=== PATIENT | female | born 1940 | race Caucasian/White ===

== ENCOUNTER 2016-04-12 08:00 | Observation (INO) | payer MEDICARE ==
--- NOTE | 2016-04-11 09:46 | NUR ---
NN PT REPORTS SHE CALLED DR. DONNELLY'S OFFICE AND CANCELLED HER APPT. FOR TOMORROW. SHE STATES IT IS RESCHEDULED FOR April.
[~2016-04-12] VITALS: Ht 157.5 cm; Wt 91.3 kg
[~2016-04-12 08:00] MED LIST: ACET-1651 PO; ATOR10TA33 PO; CALC-52 PO; CITA20TA9 PO; CYCL30DR BOTH EYES; ESOM20CA PO; LEVO88TA4 PO; LISI1TAB9 PO; MAGN400T6 PO; MESA400C2 PO; METO100T5 PO; MULT-806 PO; WARF3TAB6 PO
--- OUTSIDE RECORDS SUMMARY | 2016-04-20 07:50 | XMS REPORT | Continuity of Care Document ---
Author Author [facility] Organization [facility] Address Unknown Phone Unavailable Support Name Relationship Address Phone LAKIA LEE MD Caregiver [address] [place] [address] Unavailable ETHAN GALDAMEZ DO Caregiver [address] [place] [address] Unavailable AISLINN JOHNSON Next Of Kin [address] [place], [place] [id number] Insurance Providers Guarantor Sri Johnson Address [address] [place], [place] [id number] Email [email or web address] Payer Medicare Policy Number [id number] Subscriber's Name Sri Johnson Relationship 18 Self Payer [facility] Policy Number [id number] Subscriber's Name AlexSri A Relationship 18 Self Group Number [id number] Advance Directives Directive Response Recorded Date/Time Advanced Directives Type None 03/27/16 2:50pm Chief Complaint and Reason for Visit Chief Complaint Cough,Fever,Flu,URI Reason for Visit Bronchitis Problems Past Problems Medical Problem Onset Date Bronchitis Unknown Medications Current Home Medications Medication Dose Units Route Directions Days Qty Instructions Start Date Acetaminophen (Tylenol Extra Strength) 500 Mg Tablet 1,000 Mg Oral Every 8 Hours as needed for Pain 04/15/13 Atorvastatin Calcium 10 Mg Tablet 10 Mg Oral Bedtime 07/30/12 Benzonatate 100 Mg Capsule 1 Cap Oral Four Times Daily as needed for Cough 15 Capsule DO NOT BITE, CHEW, OR CRUSH 03/27/16 Calcium Carbonate (Calcium) 500 Mg Tablet 500 Mg Oral Twice A Day 03/27/16 Citalopram Hydrobromide (Citalopram Hbr) 20 Mg Tablet 20 Mg Oral Bedtime 01/14/14 Cyclosporine (Restasis) 1 Each Droperette 1 Drop Both Eyes Twice A Day 03/27/16 Doxycycline Monohydrate 100 Mg Capsule 1 Cap Oral Twice A Day 7 Days 14 Capsule 03/27/16 Esomeprazole Mag Trihydrate (Nexium) 20 Mg Capsule 20 Mg Oral Daily 03/27/16 Levothyroxine Sodium (Synthroid) 88 Mcg Tablet 88 Mcg Oral Daily 03/27/16 Lisinopril/Hydrochlorothiazide (Lisinopril-Hctz 10-12.5 Mg Tab) 1 Each Tablet 1 Tab Oral Daily 03/27/16 Magnesium Oxide 400 Mg Tablet 400 Mg Oral Twice A Day 03/27/16 Mesalamine (Delzicol) 400 Mg Cap.drtab. 800 Mg Oral Twice A Day 03/27/16 Metoprolol Tartrate 100 Mg Tablet 100 Mg Oral Bedtime 03/27/16 Multivitamins (Multivitamin) 1 Tab Tablet 1 Tab Oral Daily Warfarin Sodium 3 Mg Tablet 3 Mg Oral Sumotuwefrsa@1200 03/27/16 Warfarin Sodium 3 Mg Tablet 1.5 Mg Oral Every At 12:00PM 03/27/16 Past Home Medications Medication Directions Ordered Status Acetaminophen With Codeine (Tylenol W-Codeine #3 Tablet) 1 Tab Tablet, 1 Tab Oral As Needed 06/07/08 Discontinued Amlodipine Besylate (Norvasc) 5 Mg Tablet, 5 Mg Oral Daily 09/12/09 Discontinued Brimonidine Tartrate (Alphagan P) 10 Ml Drops, 10 Ml Ophthalmic Daily Discontinued Calcium Carbonate/Vitamin D3 (Calcium + D Tablet) 1 Udtab Tablet, 1 Udtab Oral Twice A Day 09/02/09 Discontinued Clonidine Hcl 0.2 Mg Tablet, 0.1 Mg Oral Twice A Day 10/10/10 Discontinued Escitalopram Oxalate (Lexapro) 10 Mg Tablet, 10 Mg Oral Daily 05/30/08 Discontinued Hydralazine Hcl 10 Mg Tablet, 10 Mg Oral As Needed 09/12/09 Discontinued Ibuprofen (Motrin) 800 Mg Tablet, 800 Mg Oral As Needed 06/07/08 Discontinued Levothyroxine Sodium (Synthroid) 88 Mcg Tablet, 88 Mcg Oral Daily 09/09/09 Discontinued Lisinopril 30 Mg Tablet, Daily 08/31/09 Discontinued Lisinopril 20 Mg Tablet, 20 Mg Oral Daily 05/30/08 Discontinued Lorazepam (Ativan) 0.5 Mg Tablet, 0.5 Mg Oral Bedtime 10/10/10 Discontinued Metoprolol Succinate (Toprol Xl) 50 Mg Tab.sr.24h, Daily 09/12/09 Discontinued Metoprolol Succinate (Toprol Xl) 100 Mg Tab.sr.24h, 100 Mg Oral Daily Discontinued Mobic , 09/12/09 Discontinued Prednisolone 5 Mg/5 Ml Solution, 5 Mg Oral Twice A Day 03/27/12 Discontinued Psyllium Husk (Metamucil) 0.52 G Capsule, 0.52 G Oral Twice A Day 09/12/09 Discontinued Social History Social History Problem Response Recorded Date/Time Onset Date Status Chewing Tobacco Status No 07/30/2012 1:23am Not Applicable Not Applicable Hx Substance Use No 03/27/2016 3:40pm Not Applicable Not Applicable Hx Alcohol Use Y WINE OCCASIONALLY 03/27/2016 3:40pm Not Applicable Not Applicable Has the pt used tobacco in the last 12 months No 01/14/2014 4:08pm Not Applicable Not Applicable Query Response Start Date Stop Date Smoking Status Never smoker Hospital Discharge Instructions No hospital discharge instructions. Plan of Care Discharge Date 03/27/16 6:18pm Disposition 01 DISCHARGED HOME, SELF-CARE Condition at Discharge Stable Instructions/Education Provided Acute Bronchitis (ED) Prescriptions See Medication Section Referrals ETHAN GALDAMEZ DO Address: [address] [place] [address] [place] [phone] Additional Instructions/Education 1. Take antibiotics as prescribed until course complete 2. Take cough medication as needed for coughing. 3. Follow up with your primary doctor in 2-3 days if you are not getting better. Care Plan and Goals Physician Care Plan Problem: Bronchitis Goal: Follow up with primary care provider Instructions: Take medications and follow care plan as discussed/written Functional Status No functional status results. Allergies, Adverse Reactions, Alerts Allergen Type Severity Reaction Status Last Updated Morphine Adverse Reaction Unknown N/V Active 03/27/16 Immunizations Query Response on File Recorded Date/Time Hx Influenza Vaccination Y OCT 2013 01/14/14 4:08pm Hx Pneumococcal Vaccination Y 10/1801/14/14 4:08pm Hx Influenza Vaccination Y OCT 2013 01/14/14 4:08pm Influenza Vaccine Hx 201503/27/16 3:40pm Vital Signs Acute Vital Signs Vital Response Date/Time Temperature (Fahrenheit) 98.2 deg F (96.8 - 99.1) 03/27/2016 6:18pm Temperature (Calculated Celsius) 36.16466 degrees C (36.0 - 37.3) 03/27/2016 6:18pm Pulse Rate (adult) 59 bpm (60 - 100) 03/27/2016 6:18pm Respiratory Rate 18 breaths/min (10 - 20) 03/27/2016 6:18pm O2 Sat by Pulse Oximetry 98 % (90 - 100) 03/27/2016 6:18pm Blood Pressure 123/68 mm Hg 03/27/2016 6:18pm Height (Feet) 5 feet 03/27/2016 2:50pm Height (Inches) 2.00 inches 03/27/2016 2:50pm Weight (Kilograms) 95.000 kg 03/27/2016 2:50pm Body Mass Index (BMI) 38.0 03/27/2016 2:50pm Results No known relevant diagnostic tests, laboratory data and/or discharge summary. Procedures Procedure Status Date Provider(s) Breast tomosynthesis bi Completed 02/25/16 [id number]"SCREENING MAMMOGRAPHY, PRODUCING DIRECT DIGITAL IMAGE Completed Encounters Encounter Location Arrival/Admit Date Discharge/Depart Date Attending Provider Departed Emergency Room [facility] 03/27/16 2:47pm 03/27/16 6: 18pm LAKIA LEE MD Registered Clinic [facility] 02/25/16 3:44pm TYLOR VASQUEZ Diagnosis
--- OUTSIDE RECORDS SUMMARY | 2016-04-20 07:50 | XMS REPORT | Continuity of Care Document ---
Author Author [facility] Organization [facility] Address Unknown Phone Unavailable Support Name Relationship Address Phone ETHAN GALDAMEZ DO Caregiver [facility] [address] [place] [phone] AISLINN JOHNSON Next Of Kin [address] [place], [place] [phone] Insurance Providers Payer Name Policy Number Subscriber Name Relationship [facility] [id number] Sir Johnson 18 Self Advance Directives Directive Response Recorded Date/Time Ordered Resuscitation Status Full Code, unverified 01/14/14 4:33pm Resuscitation Documents on File Yes 01/14/14 4:13pm Problems No known problems or medical conditions. Medications Medication Dose Route Sig Days/Qty Instructions Order Date Discontinued Date Status Estradiol/Levonorgestrel 1 Patch.wk TD WEEKLY 09/11/09 Active Esomeprazole Mag Trihydrate 40 Mg PO DAILY 09/12/09 Active Levothyroxine Sodium 88 Mcg PO DAILY 09/09/09 09/11/09 Discontinued Lisinopril 20 Mg PO DAILY 05/30/08 08/31/09 Discontinued Metoprolol Succinate 100 Mg PO DAILY 05/30/08 08/31/09 Discontinued Escitalopram Oxalate 10 Mg PO DAILY 05/30/08 08/31/09 Discontinued Brimonidine Tartrate 10 Ml OP DAILY 05/30/08 08/31/09 Discontinued Calcium Carbonate/Vitamin D3 1 Udtab PO TWICE A DAY 09/02/09 Discontinued Psyllium Husk 0.52 G PO TWICE A DAY 09/12/09 10/10/10 Discontinued Ibuprofen 800 Mg PO NEEDED 06/07/08 08/31/09 Discontinued Acetaminophen With Codeine 1 Tab PO NEEDED 06/07/08 08/31/09 Discontinued Metoprolol Succinate DAILY 09/12/09 10/10/10 Discontinued Lisinopril DAILY 08/31/09 09/02/09 Discontinued Amlodipine Besylate 5 Mg PO DAILY 09/12/09 12/05/11 Discontinued Hydralazine Hcl 10 Mg PO NEEDED 09/12/09 12/05/11 Discontinued Levothyroxine Sodium 100 Mcg PO DAILY 09/12/09 Active [Mobic] 09/12/09 10/10/10 Discontinued Metoprolol Succinate 100 Mg PO BEDTIME 10/10/10 Active Lorazepam 0.5 Mg PO BEDTIME 10/10/10 12/05/11 Discontinued Warfarin Sodium 3 Mg PO DAILY TAKES 2.5 MG DAILY EXCEPT FOR MON/- TAKES 5 MG 10/10/10 Active Clonidine Hcl 0.1 Mg PO TWICE A DAY 10/10/10 02/29/12 Discontinued Multivitamins 1 Tab PO DAILY 12/05/11 Active Lisinopril/Hydrochlorothiazide 0.5 Tab PO DAILY 03/01/12 Active Cyclosporine 1 Drop BOTH EYES TWICE A DAY 03/27/12 Active Prednisolone 5 Mg PO TWICE A DAY 03/27/12 07/30/12 Discontinued Atorvastatin Calcium 10 Mg PO BEDTIME 07/30/12 Active Calcium Carbonate/Vitamin D3 1 Udtab PO TWICE A DAY 04/12/13 Active Acetaminophen 1,000 Mg PO NEEDED 04/15/13 Active P-Ephed Hcl/Fexofenadine Hcl 1 Tab.sr PO NEEDED 04/15/13 Active Citalopram Hydrobromide 20 Mg PO BEDTIME 30 Days 01/14/14 Active Social History Social History Problem Response Recorded Date/Time Chewing Tobacco Status No 07/30/2012 1:23am Hx Substance Use No 01/14/2014 4:08pm Hx Alcohol Use Y WINE OCCASIONALLY 01/14/2014 4:08pm Has the pt used tobacco in the last 12 months No 01/14/2014 4:08pm Query Response Start Date Stop Date Smoking Status Former smoker Hospital Discharge Instructions No hospital discharge instructions. Plan of Care No plan of care. Functional Status No functional status results. Allergies, Adverse Reactions, Alerts Allergen Type Severity Reaction Status Last Updated Morphine Allergy Unknown N/V Active 07/30/12 Immunizations Name Given Type Hx Influenza Vaccination Y OCT 2013 Historical Hx Pneumococcal Vaccination Y 10/18 Historical Hx Influenza Vaccination Y OCT 2013 Historical Vital Signs Acute Vital Signs Vital Response Date/Time Temperature (Fahrenheit) 96.8 deg F (96.8 - 99.1) Temperature (Calculated Celsius) 36.50227 degrees C (36.0 - 37.3) Temperature Source Temporal Pulse Rate (adult) 52 bpm (60 - 100) Respiratory Rate 14 breaths/min (10 - 20) O2 Sat by Pulse Oximetry 99 % (90 - 100) Oxygen Delivery Method Room Air Blood Pressure 116/67 mm Hg Blood Pressure Source Automatic Cuff Height 5 ft 2 in Weight 186 lb Body Mass Index 34.0 kg/m^2 Results Test Source Date Result Interp. Ref. Range Comments Activated Partial Thromboplast Time April 04, 2013 5:12pm 54.7 SEC H 24-36 Alanine Aminotransferase (ALT/SGPT) August 31, 2012 1:43pm 26 U/L N 9-52 Albumin August 31, 2012 1:43pm 4.1 G/DL N 3.5-5.0 Albumin/Globulin Ratio August 31, 2012 1:43pm 1.3 RATIO N 1.1-2.2 Alkaline Phosphatase August 31, 2012 1:43pm 65 U/L N 38-126 Amylase Level July 30, 2012 12:09pm 91 U/L N 30-110 Anion Gap April 17, 2013 4:28am 7 MEQ/L N 5-15 Aspartate Amino Transf (AST/SGOT) August 31, 2012 1:43pm 27 U/L N 14-36 B-Type Natriuretic Peptide August 31, 2009 1:00am 18 PG/ML N 15-100 BUN/Creatinine Ratio April 17, 2013 4:28am 16 RATIO N 6-26 Band Neutrophils # August 02, 2012 5:18am 0.2 T/MM3 - Band Neutrophils % August 02, 2012 5:18am 8.0 % H 0-6 Basophils # (Auto) April 15, 2013 6:30am 0.1 T/MM3 N 0-0.2 COMMENT SCU WILL CALL Basophils (%) (Auto) April 15, 2013 6:30am 1.0 % N 0-2 COMMENT SCU WILL CALL Blood Smear Pathologist Review July 30, 2012 12:09pm Sent for review - COMMENT All cell lines dropping from Mar 2012 Blood Urea Nitrogen April 17, 2013 4:28am 22.0 MG/DL H 7-17 Calcium Level April 17, 2013 4:28am 8.5 MG/DL N 8.4-10.2 Calculated Osmolality April 17, 2013 4:28am 264 MOSM/KG N 261-280 Carbon Dioxide Level April 17, 2013 4:28am 27 MEQ/L N 22-30 Chloride Level April 17, 2013 4:28am 102 MEQ/L N 98-107 Cholesterol Level April 14, 2012 9:46am 225 MG/DL H 132-199 Cholesterol/HDL Ratio April 14, 2012 9:46am 6.1 RATIO H 0-4.0 Conjugated Bilirubin March 09, 2011 10:21pm 0.00 MG/DL N 0.00-0.30 Creatine Kinase MB December 05, 2011 5:07pm 3.1 NG/ML N 0-3.4 CALL TO [phone] Creatinine April 17, 2013 4:28am 1.4 MG/DL DH 0.7-1.2 D-Dimer March 09, 2011 10:21pm < 150 NG/ML 0-230 <224 NG/ML= PRESUMPTIVE NEGATIVE FOR PE OR DVT>224 NG/ML=ADDITIONAL EVALUATION FOR PE OR DVT RECOMMENDED Eosinophils # (Auto) April 15, 2013 6:30am 0.3 T/MM3 N 0-0.5 COMMENT SCU WILL CALL Eosinophils # (Manual) August 02, 2012 5:18am 0.1 T/MM3 N 0-0.5 Eosinophils % (Manual) August 02, 2012 5:18am 4.0 % N 0-4 Eosinophils (%) (Auto) April 15, 2013 6:30am 3.9 % N 0-4 COMMENT SCU WILL CALL Erythrocyte Sedimentation Rate April 04, 2013 5:00pm 42 MM/HR H 0-20 Folate August 01, 2012 4:20am > 20.0 NG/ML H 2.76-20 NORMAL ADULT RANGE: 2.76->20 ng/mL Free Thyroxine September 10, 2009 5:05am 1.15 NG/DL N 0.78-2.19 Globulin August 31, 2012 1:43pm 3.2 G/DL N 2.4-3.6 Glucose Level April 17, 2013 4:28am 84 MG/DL N 65-110 Hematocrit April 17, 2013 4:28am 30.0 % L 36-46 Hemoglobin April 17, 2013 4:28am 9.6 GM/DL L 12-16 LDL Cholesterol, Calculated April 14, 2012 9:46am 188 H 66-159 Lactate Dehydrogenase August 31, 2012 1:43pm 451 U/L N 313-618 Lipase July 30, 2012 12:09pm 310 U/L H 23-300 Lymphocytes # (Auto) April 15, 2013 6:30am 2.4 T/MM3 N 1-4.8 COMMENT SCU WILL CALL Lymphocytes # (Manual) August 08, 2012 9:15am 2.7 T/MM3 N 1-4.8 Lymphocytes % (Manual) August 08, 2012 9:15am 36.0 % N 23-45 Lymphocytes (%) (Auto) April 15, 2013 6:30am 36.0 % N 23-45 COMMENT SCU WILL CALL Magnesium Level September 10, 2009 5:05am 1.9 MG/DL N 1.6-2.3 Mean Corpuscular Hemoglobin April 17, 2013 4:28am 29.7 UUG N 26-34 Mean Corpuscular Hemoglobin Concent April 17, 2013 4:28am 32.0 GM/DL N 31-37 Mean Corpuscular Volume April 17, 2013 4:28am 92.9 UM3 N 80-100 Mean Platelet Volume April 17, 2013 4:28am 10.8 UM3 N 9.4-12.4 Metamyelocytes # August 08, 2012 9:15am 0.2 T/MM3 - Metamyelocytes % August 08, 2012 9:15am 3.0 % H 0-0 Methylmalonic Acid August 01, 2012 4:20am 0.17 nmol/mL - Test Performed by:[place] [address] Chemical Plant Manager: aPncho Lanier III, M.D. Methylmalonic Acid, Serum performed at [facility], [address] [place] [address] Mixing Machine Tender Cork Rod Yolande Flanagan MD Monocytes # (Auto) April 15, 2013 6:30am 0.5 T/MM3 N 0-0.8 COMMENT SCU WILL CALL Monocytes # (Manual) August 08, 2012 9:15am 0.3 T/MM3 N 0-0.8 Monocytes % (Manual) August 08, 2012 9:15am 4.0 % N 0-9.0 Monocytes (%) (Auto) April 15, 2013 6:30am 8.1 % N 0-9.0 COMMENT SCU WILL CALL Neutrophils # (Auto) April 15, 2013 6:30am 3.4 T/MM3 N 1.8-7.7 COMMENT SCU WILL CALL Neutrophils # (Manual) August 08, 2012 9:15am 3.9 T/MM3 N 1.8-7.7 Neutrophils % (Manual) August 08, 2012 9:15am 53.0 % N 33-66 Neutrophils (%) (Auto) April 15, 2013 6:30am 50.7 % N 33-66 COMMENT SCU WILL CALL Platelet Count April 17, 2013 4:28am 283 T/MM3 N 130-400 Potassium Level April 17, 2013 4:28am 4.2 MEQ/L N 3.6-5 Prothromb Time International Ratio April 17, 2013 4:28am 1.40 H 0.86- 1.10 THERAPUTIC RANGE=2.00-3.00 FOR ANTI-THROMBOSIS THERAPUTIC RANGE=2.50- 3.50 FOR IMPLANTED VALVE RDW Standard Deviation April 17, 2013 4:28am 43.4 FL N 36.9-50.2 Red Blood Count April 17, 2013 4:28am 3.23 M/MM3 L 4.00-5.20 Sodium Level April 17, 2013 4:28am 136 MEQ/L N 134-144 Stool Occult Blood August 01, 2012 9:06pm Negative - Has specimen been collected/obtained? Y Stool for White Cells August 01, 2012 9:06pm Positive - Has specimen been collected/obtained? Y Thyroid Stimulating Hormone (TSH) January 09, 2013 2:50pm 0.47 MIU/L DN 0.47-4.68 Total Bilirubin August 31, 2012 1:43pm 0.70 MG/DL N 0.20-1.30 Total Creatine Kinase December 05, 2011 5:07pm 134 U/L N 30-135 CALL TO [phone] Total Protein August 31, 2012 1:43pm 7.3 G/DL N 6.3-8.2 Triglycerides Level April 14, 2012 9:46am 153 MG/DL H 35-135 Troponin I December 05, 2011 5:07pm < 0.012 ng/ml 0-0.12 CALL TO Unconjugated Bilirubin March 09, 2011 10:21pm 0.90 MG/DL N 0.00-1.10 Urine 5-HIAA 24 Hour September 10, 2009 8:33pm Ref lab rpt scanned - -- - 09/16/09 1057 ---5HIAA previously reported as: SENT OUT Urine Bilirubin April 15, 2013 6:15am Negative - COMMENT C&S IF WBC > 10 AND BACTERIA 1+ OR MOREHas specimen been collected/obtained? Y Urine Blood April 15, 2013 6:15am Negative - COMMENT C&S IF WBC > 10 AND BACTERIA 1+ OR MOREHas specimen been collected/obtained? Y Urine Collection Type April 15, 2013 6:15am Cleancatch-midstream - COMMENT C&S IF WBC > 10 AND BACTERIA 1+ OR MOREHas specimen been collected/ obtained? Y Urine Color April 15, 2013 6:15am Yellow - COMMENT C&S IF WBC > 10 AND BACTERIA 1+ OR MOREHas specimen been collected/obtained? Y Urine Fractionated Catecholamines September 10, 2009 8:33pm Ref lab rpt scanned - --- 09/17/09 1643 ---CATFU previously reported as: SENT OUT Urine Glucose (UA) April 15, 2013 6:15am Negative - COMMENT C&S IF WBC > 10 AND BACTERIA 1+ OR MOREHas specimen been collected/obtained? Y Urine Ketones April 15, 2013 6:15am Negative - COMMENT C&S IF WBC > 10 AND BACTERIA 1+ OR MOREHas specimen been collected/obtained? Y Urine Leukocyte Esterase April 15, 2013 6:15am Negative - COMMENT C& S IF WBC > 10 AND BACTERIA 1+ OR MOREHas specimen been collected/obtained? Y Urine Nitrite April 15, 2013 6:15am Negative - COMMENT C&S IF WBC > 10 AND BACTERIA 1+ OR MOREHas specimen been collected/obtained? Y Urine Protein April 15, 2013 6:15am Negative - COMMENT C&S IF WBC > 10 AND BACTERIA 1+ OR MOREHas specimen been collected/obtained? Y Urine Specific [place] April 15, 2013 6:15am 1.015 - COMMENT C&S IF WBC > 10 AND BACTERIA 1+ OR MOREHas specimen been collected/obtained? Y Urine Turbidity April 15, 2013 6:15am Clear - COMMENT C&S IF WBC > 10 AND BACTERIA 1+ OR MOREHas specimen been collected/obtained? Y Urine Urobilinogen April 15, 2013 6:15am 0.2 EU/DL - COMMENT C&S IF WBC > 10 AND BACTERIA 1+ OR MOREHas specimen been collected/obtained? Y Urine pH April 15, 2013 6:15am 6.0 - COMMENT C&S IF WBC > 10 AND BACTERIA 1+ OR MOREHas specimen been collected/obtained? Y VLDL Cholesterol April 14, 2012 9:46am 30.6 MG/DL H 0-28 Vitamin B12 Level August 01, 2012 4:20am 850 PG/ML N 239-931 White Blood Count April 17, 2013 4:28am 7.3 T/MM3 N 4.5-11.0 Chemistry Specimen Hemolysis April 17, 2013 4:28am < 15 0-25 0-25: No Hemolysis.26-70: Slight Hemolysis - can falsely elevate K and Urine Protein. 71-285: Moderate Hemolysis - can falsely elevate K, Troponin I, CA 19-9, PTH, CSF GLucose, and Urine Protein, and can falsely decrease Phenytoin. 286-999: Gross Hemolysis - can falsely elevate K, Troponin I, CA 19-9, PTH, CSF Glucose, and Urine Protine, and can falsely decrease Phenytoin. Recommend specimen recollection. Urinalysis Comment April 15, 2013 6:15am Microscopic not ind. - COMMENT C&S IF WBC > 10 AND BACTERIA 1+ OR MOREHas specimen been collected/ obtained? Y Lab Scanned Report April 04, 2013 9:34pm LAB TEST FORM REQUEST [id number] - Metanephrines & Normetanephrines September 10, 2009 8:33pm Ref lab rpt scanned - --- 09/15/09 1613 ---METANU previously reported as: SEND OUT HDL Cholesterol Direct April 14, 2012 9:46am 37 MG/DL L 40-60 Methicillin-Resist S.aureus DNA PCR March 26, 2013 2:59pm Negative - Turbidity April 17, 2013 4:28am < 20 0-20 Reactive Lymphocytes % August 08, 2012 9:15am 4.0 % H 0-0 Glomerular Filtration Rate Calc April 17, 2013 4:28am 37 - Reactive Lymphocytes # August 08, 2012 9:15am 0.3 T/MM3 H 0-0 Immature Granulocyte # (Auto) April 15, 2013 6:30am 0.02 T/MM3 N 0.00- 0.03 COMMENT SCU WILL CALL Immature Granulocyte % (Auto) April 15, 2013 6:30am 0.3 % N 0.0-0.5 COMMENT SCU WILL CALL Icterus Index April 17, 2013 4:28am < 2 0-7 MRSA Specimen Source March 26, 2013 2:59pm Nasal - Urine Microscopic Not Indicated September 09, 2009 1:22pm Not indicated - COMMENT WITH C & SHas specimen been collected/obtained? Y C. difficile Toxin B Gene (PCR) August 01, 2012 9:06pm Test not performedSpecimen unacceptable for test, not diarrheic. - Blood Culture Blood July 30, 2012 2:14pm NO GROWTH AFTER 5 DAYS Stool Culture Stool August 01, 2012 9:06pm Procedures Procedure Status Date Provider(s) Colonoscopy with polypectomy and biopsy completed 01/15/14 ETHAN GALDAMEZ DO
--- NOTE | 2016-04-20 08:00 | NUR ---
ADMIT PT ADMITTED TO ROOM 120 AT THIS TIME VIA AMBULATORY STATUS. PT ALERT AND ORIENTED. PT REPOSITIONED SELF IN BED. WILL CONTINUE TO MONITOR.
[2016-04-20 08:07] VITALS: Ht 157.5 cm; Wt 91.3 kg
[2016-04-20 08:20] VITALS: BP 116/58; PULSE 68; RESP 14; TEMP 97.7; O2SAT 96
[2016-04-20 08:45] LABS: BASOPHILS # (AUTO) 0.1 T/MM3 (0-0.2); EOSINOPHILS # (AUTO) 0.3 T/MM3 (0-0.5); EOSINOPHILS % (AUTO) 5.5 % (0-4); HCT - HEMATOCRIT 41.1 % (36-46); HGB - HEMOGLOBIN 13.2 GM/DL (12-16); LYMPHOCYTES # (AUTO) 1.8 T/MM3 (1-4.8); LYMPHOCYTES % (AUTO) 34.9 % (23-45); MEAN CORPUSCULAR HGB 29.1 UUG (26-34); MEAN CORPUSCULAR HGB CONC(MCHC 32.1 GM/DL (31-37); MEAN CORPUSCULAR VOLUME 90.7 UM3 (80-100); MEAN PLATELET VOLUME 10.5 UM3 (9.4-12.4); MONOCYTES # (AUTO) 0.4 T/MM3 (0-0.8); MONOCYTES % (AUTO) 8.3 % (0-9.0); NEUTROPHILS #(AUTO)-ABSOLUTE 2.5 T/MM3 (1.8-7.7); NEUTROPHILS % (AUTO) 50.3 % (33-66); RED BLOOD COUNT 4.53 M/MM3 (4.00-5.20); WBC - WHITE BLOOD COUNT 5.1 T/MM3 (4.5-11.0)
[2016-04-20 08:56] LABS: ALBUMIN 3.9 G/DL (3.5-5.0); ALBUMIN/GLOBULIN RATIO 1.3 RATIO (1.1-2.2); ALKALINE PHOSPHATASE 55 U/L (38-126); ALT (SGPT) 29 U/L (9-52); ANION GAP 12 MEQ/L (5-15); AST (SGOT) 29 U/L (14-36); BUN/CREATININE RATIO 16 RATIO (6-26); CALCIUM 9.2 MG/DL (8.4-10.2); CHLORIDE 104 MEQ/L (98-107); CO2 - CARBON DIOXIDE 27 MEQ/L (22-30); CREATININE 1.3 MG/DL (0.7-1.2); GLOMERULAR FILTRATION RATE 40; GLUCOSE 102 MG/DL (65-110); MAGNESIUM 1.6 MG/DL (1.6-2.3); POTASSIUM 3.6 MEQ/L (3.6-5); SODIUM 143 MEQ/L (134-144)
[2016-04-20 09:25] LABS: THYROID STIM HORMONE-TSH 1.13 MIU/L (0.47-4.68)
[2016-04-20 09:48] VITALS: PULSE 68; RESP 14
[2016-04-20] MEDS ORDERED: ACETAMINOPHEN 500 MG TABLET PO PRN (10:00)
[2016-04-20] MEDS: CycloSPORINE 0.05% Eye Drops 0.4ml DROPERETTE BOTH EYES SCH ×3 (10:24→21:00)
[2016-04-20] MEDS: SOTALOL 80 MG TABLET PO SCH ×2 (10:24→17:50)
[2016-04-20] MEDS: LISINOPRIL/HCTZ 10mg/12.5mg TABLET PO SCH (10:24)
--- NOTE | 2016-04-20 11:05 | HPPDOC ---
HPI - Adult Date DATE: 04/20/16 TIME: 10:47 General Date of Admission Date of Admission: Apr 20, 2016 at 07:46 Chief Complaint: palpitations History of Present Illness Sri is a 75 year old female who is well known to Dr. Espinosa with a history of CAD, paroxysmal A Fib, HTN and HLD. She was last seen 03/30/16 and reported feeling an increase in palpitations while on Metoprolol. She is admitted today for observation on antiarrhythmic therapy on Sotalol 40mg po BID. Past Medical History Past Medical History Metabolic: hypercholesterolemia, hypertension, hypothyroidism ENMT: glaucoma Cardiac: A-fib, CAD Respiratory: other GI: GERD, other, ulcerative colitis Musculoskeletal: back pain, osteoarthritis Surgical History General: gallbladder, hernia, other (thyroidectomy), tonsils Reproductive/: hysterectomy Joint: carpal tunnel, hip (left), other Current Medications Home Meds Reported Medications Magnesium Oxide (Magnesium Oxide) 400 Mg Tablet, 400 MG PO BID 03/27/16 Mesalamine (Delzicol) 400 Mg Cap.drtab., 2 TAB PO BID 03/27/16 Warfarin Sodium (Warfarin Sodium) 3 Mg Tablet, 1.5 MG PO Th@1200 03/27/16 Warfarin Sodium (Warfarin Sodium) 3 Mg Tablet, 3 MG PO SuMoTuWeFrSa@1200 03/27/16 Metoprolol Tartrate (Metoprolol Tartrate) 100 Mg Tablet, 100 MG PO HS 03/27/16 Lisinopril/Hydrochlorothiazide (Lisinopril-Hctz 10-12.5 mg Tab) 1 Each Tablet, 1 TAB PO DAILY 03/27/16 Levothyroxine Sodium (Synthroid) 88 Mcg Tablet, 88 MCG PO DAILY 03/27/16 Esomeprazole Mag Trihydrate (Nexium) 20 Mg Capsule, 20 MG PO DAILY 03/27/16 Cyclosporine (Restasis) 1 Each Droperette, 1 DROP BOTH EYES BID 03/27/16 Calcium Carbonate (Calcium) 500 Mg Tablet, 500 MG PO BID 03/27/16 Citalopram Hydrobromide (Citalopram HBr) 20 Mg Tablet, 20 MG PO HS 01/14/14 Acetaminophen (Tylenol Extra Strength) 500 Mg Tablet, 1000 MG PO Q8H Y for PAIN 04/15/13 Atorvastatin Calcium (Atorvastatin Calcium) 10 Mg Tablet, 10 MG PO HS 6/24/13 Multivitamins (Multivitamin) 1 Tab Tablet, 1 TAB PO DAILY 12/05/11 Allergies: Coded Allergies: morphine (Verified Adverse Reaction, Unknown, N/V, 04/20/16) Family History FOUND: [place], cancer, hypertension Vaccines FALL 2015July [id number] Social History Substance Use Type: does not use Alcohol Intake: occasionally Current Occupational Status: retired Prior Occupation: registered nurse Advance Directives: Yes DPOA for Healthcare Only ( [employer]) Review of Systems Constitutional: DENIES: chills, dizziness, fatigue, fever, syncope, weakness Eyes Vision: DENIES: double vision ENMT Hearing: DENIES: tinnitus Balance: DENIES: vertigo Sinuses: NOT FOUND: rhinorrhea Mouth/Throat: DENIES: sore throat Cardiovascular DENIES: chest pain, dyspnea on exertion, murmur Rhythm/Rate: palpitations, DENIES: irregular beat Vascular: DENIES: pedal edema Pulmonary Respiratory: cough (bronchitis last month), sputum GI Upper Abdomen: DENIES: nausea, vomiting Lower Abdomen: DENIES: diarrhea General: DENIES: dysuria Integumentary Skin: DENIES: rash, sores Neurological General: DENIES: headache, numbness, syncope, weakness All Other Systems All Other Systems: Reviewed (remainder of 10-point ROS Neg.) Physical Exam General General Nourishment: well nourished, well developed, apparent age Vital Signs Vital Signs Date Time Temp Pulse Resp B/P Pulse Ox O2 Delivery O2 Flow Rate FiO2 04/20/16 10:24 63 04/20/16 09:48 14 04/20/16 08:20 97.7 116/58 96 Room Air Height (Feet): 5 Height (Inches): 2.00 Telemetry Rhythm: Sinus Rhythm ENMT Brief: FOUND: mucosa moist Neck Brief: NOT FOUND: JVD, carotid bruits Respiratory Brief: FOUND: clear all [place], equal bilaterally, NOT FOUND: rales , wheezes Cardiovascular (brief) Cardiac Brief: FOUND: regular rate, regular rhythm, NOT FOUND: click, gallop, murmur, pedal edema Abdomen (brief) Abdominal Brief: FOUND: BS normo active x4, soft, NOT FOUND: tender Integumentary (brief) Integumentary Brief: FOUND: dry, pink, warm Neurologic RN Documented GCS Eye Opening: Verbal: Motor: Total: Psychiatric (brief) FOUND: alert, attentive, oriented Laboratory Laboratory Tests Test 04/20/16 08:20 White Blood Count 5.1T/MM3 Red Blood Count 4.53M/MM3 Hemoglobin 13.2GM/DL Hematocrit 41.1% Mean Corpuscular Volume 90.7UM3 Mean Corpuscular Hemoglobin 29.1UUG Mean Corpuscular Hemoglobin Concent 32.1GM/DL RDW Standard Deviation 47.3FL Platelet Count 320T/MM3 Mean Platelet Volume 10.5UM3 Immature Granulocyte % (Auto) 0.0% Neutrophils (%) (Auto) 50.3% Lymphocytes (%) (Auto) 34.9% Monocytes (%) (Auto) 8.3% Eosinophils (%) (Auto) 5.5% Basophils (%) (Auto) 1.0% Absolute Immature Granulocyte (auto 0.00T/MM3 Absolute Neutrophils (auto) 2.5T/MM3 Absolute Lymphocytes (auto) 1.8T/MM3 Absolute Monocytes (auto) 0.4T/MM3 Absolute Eosinophils (auto) 0.3T/MM3 Absolute Basophils (auto) 0.1T/MM3 Turbidity < 20 Sodium Level 143MEQ/L Potassium Level 3.6MEQ/L Chloride Level 104MEQ/L Carbon Dioxide Level 27MEQ/L Anion Gap 12MEQ/L Blood Urea Nitrogen 21.0MG/DL Creatinine 1.3MG/DL Glomerular Filtration Rate Calc 40 BUN/Creatinine Ratio 16RATIO Glucose Level 102MG/DL Calculated Osmolality 278MOSM/KG Calcium Level 9.2MG/DL Magnesium Level 1.6MG/DL Total Bilirubin 1.00MG/DL Icterus Index < 2 Aspartate Amino Transf (AST/SGOT) 29U/L Alanine Aminotransferase (ALT/SGPT) 29U/L Alkaline Phosphatase 55U/L Total Protein 7.0G/DL Albumin 3.9G/DL Globulin 3.1G/DL Albumin/Globulin Ratio 1.3RATIO Thyroid Stimulating Hormone (TSH) 1.13MIU/L Chemistry Specimen Hemolysis < 15 Laboratory Tests Test 04/20/16 08:20 White Blood Count 5.1T/MM3 Red Blood Count 4.53M/MM3 Hemoglobin 13.2GM/DL Hematocrit 41.1% Mean Corpuscular Volume 90.7UM3 Mean Corpuscular Hemoglobin 29.1UUG Mean Corpuscular Hemoglobin Concent 32.1GM/DL RDW Standard Deviation 47.3FL Platelet Count 320T/MM3 Mean Platelet Volume 10.5UM3 Immature Granulocyte % (Auto) 0.0% Neutrophils (%) (Auto) 50.3% Lymphocytes (%) (Auto) 34.9% Monocytes (%) (Auto) 8.3% Eosinophils (%) (Auto) 5.5% Basophils (%) (Auto) 1.0% Absolute Immature Granulocyte (auto 0.00T/MM3 Absolute Neutrophils (auto) 2.5T/MM3 Absolute Lymphocytes (auto) 1.8T/MM3 Absolute Monocytes (auto) 0.4T/MM3 Absolute Eosinophils (auto) 0.3T/MM3 Absolute Basophils (auto) 0.1T/MM3 Turbidity < 20 Sodium Level 143MEQ/L Potassium Level 3.6MEQ/L Chloride Level 104MEQ/L Carbon Dioxide Level 27MEQ/L Anion Gap 12MEQ/L Blood Urea Nitrogen 21.0MG/DL Creatinine 1.3MG/DL Glomerular Filtration Rate Calc 40 BUN/Creatinine Ratio 16RATIO Glucose Level 102MG/DL Calculated Osmolality 278MOSM/KG Calcium Level 9.2MG/DL Magnesium Level 1.6MG/DL Total Bilirubin 1.00MG/DL Icterus Index < 2 Aspartate Amino Transf (AST/SGOT) 29U/L Alanine Aminotransferase (ALT/SGPT) 29U/L Alkaline Phosphatase 55U/L Total Protein 7.0G/DL Albumin 3.9G/DL Globulin 3.1G/DL Albumin/Globulin Ratio 1.3RATIO Thyroid Stimulating Hormone (TSH) 1.13MIU/L Chemistry Specimen Hemolysis < 15 EKG SR Assessment & Plan Problems: (1) Paroxysmal atrial fibrillation Status: Chronic Assessment & Plan: Stopped Metoprolol yesterday. Admit today for observation on antiarrhythmic therapy on Sotalol 40mg po BID. (2) Atherosclerotic heart disease of [place] coronary artery without angina pectoris Status: Chronic Qualifiers: [place] vs. transplanted heart: [place] heart Qualified Codes: I25.10 - Atherosclerotic heart disease of [place] coronary artery without angina pectoris Assessment & Plan: Continue medical management and risk management (3) Essential (primary) hypertension Status: Chronic Assessment & Plan: well controlled on medical therapy (4) Mixed hyperlipidemia Status: Chronic Assessment & Plan: PCP manages Plan/Intensity of Service Admitted today for observation on antiarrhythmic therapy on Sotalol 40mg po BID. DVT Prophylaxis: Coumadin Code Status Full Code Hospital Course Summary Disclaimer The hospital course summary below is not to be considered part of the above Progress Note. JUSTIN DEVINE APRN Apr 20, 2016 10:50
[2016-04-20] MEDS ORDERED: WARFARIN 3 MG TABLET PO SCH (12:00)
[2016-04-20 14:58] VITALS: BP 148/65; PULSE 57; RESP 16; TEMP 97.9; O2SAT 97
[2016-04-20 16:17] VITALS: PULSE 58
--- NOTE | 2016-04-20 19:07 | NUR ---
SUMMARY PT UP AD [facility] THIS SHIFT. PT DENIES ANY SIDE AFFECTS FROM SOTALOL ADMINISTRATION. PULSE REMAINS IN THE UPPER 50'S-60'S. PT DENIES CP OR SOA. ADEQUATE OUTPUT AND INTAKE NOTED. IVL REMAINS PATENT AND INTACT TO LEFT WRIST. PT DENIES PAIN. VITAL SIGNS STABLE ON ROOM AIR. PT AMBULATED HALLS THIS SHIFT AND POSITIONED SELF IN CHAIR OCCASIONALLY. PRESENT THIS AFTERNOON TO VISIT. WILL CONTINUE TO MONITOR CLOSELY.
[2016-04-20] MEDS: MAGNESIUM OXIDE 400 MG TABLET PO SCH (21:00)
[2016-04-20] MEDS: CALCIUM 500 MG TABLET PO SCH (21:00)
[2016-04-20] MEDS ORDERED: ATORVASTATIN 10 MG TABLET PO SCH (22:00)
[2016-04-21 00:34] VITALS: BP 122/58; PULSE 63; RESP 12; TEMP 98.3; O2SAT 96
--- NOTE | 2016-04-21 05:37 | NUR ---
SHIFT SUMMARY PATIENT IS ALERT AND ORIENTED X3 THIS SHIFT. VITAL SIGNS ARE STABLE ON ROOM AIR, THOUGH SHE HAS HAD SOME BRADYCARDIA THROUGH THE NIGHT WITH HR IN THE UPPER 40S. PATIENT HAS REPORTED NO PAIN THIS SHIFT. PATIENT IS UP AT [facility] IN ROOM WITHOUT DIFFICULTY. PATIENT HAS SLEPT MOST OF THIS SHIFT. WILL CONTINUE TO MONITOR.
[2016-04-21 06:29] LABS: ANION GAP 5 MEQ/L (5-15); BUN/CREATININE RATIO 19 RATIO (6-26); CHLORIDE 106 MEQ/L (98-107); CO2 - CARBON DIOXIDE 29 MEQ/L (22-30); CREATININE 1.1 MG/DL (0.7-1.2); GLOMERULAR FILTRATION RATE 48; GLUCOSE 95 MG/DL (65-110); MAGNESIUM 1.9 MG/DL (1.6-2.3); POTASSIUM 4.3 MEQ/L (3.6-5); SODIUM 140 MEQ/L (134-144)
[2016-04-21] MEDS ORDERED: PANTOPRAZOLE 20 MG TABLET PO SCH (06:30)
[2016-04-21 08:03] VITALS: BP 140/60; PULSE 60; RESP 18; TEMP 97.9; O2SAT 97
[2016-04-21 08:05] VITALS: PULSE 60; RESP 18
[2016-04-21] MEDS: SOTALOL 80 MG TABLET PO SCH (08:05)
[2016-04-21] MEDS: CALCIUM 500 MG TABLET PO SCH (09:00)
[2016-04-21] MEDS ORDERED: LEVOTHYROXINE 88 MCG TABLET PO SCH (09:00)
[2016-04-21] MEDS: MAGNESIUM OXIDE 400 MG TABLET PO SCH (09:00)
[2016-04-21] MEDS: LISINOPRIL/HCTZ 10mg/12.5mg TABLET PO SCH (10:26)
[2016-04-21] MEDS: CycloSPORINE 0.05% Eye Drops 0.4ml DROPERETTE BOTH EYES SCH (10:26)
--- NOTE | 2016-04-21 11:35 | NUR ---
CM CM IN TO VISIT PATIENT, SHE IS A&O. PATIENT PLANS TO DISCHARGE HOME, DENIES ANY DISCHARGE NEEDS. WILL TRANSPORT HOME. CM CONTACT INFORMATION PROVIDED. Addendum: 04/21/16 at 1136 by INDIA RODRIGES RN Amended: Links added.
[2016-04-21] MEDS ORDERED: SOTA80TA20 PO (11:37)
--- NOTE | 2016-04-21 11:43 | DSPDOC ---
General Date Date DATE: 04/21/16 TIME: 11:38 Attending Physician Pancho Espinosa MD Admitting Physician Pancho Espinosa MD Admitting Diagnosis I48.O PAROXYSMAL ATRIAL FIBRILLATION Discharge Diagnosis I48.0 Laboratory Laboratory Tests Test 04/20/16 08:20 04/21/16 05:20 White Blood Count 5.1T/MM3 Red Blood Count 4.53M/MM3 Hemoglobin 13.2GM/DL Hematocrit 41.1% Mean Corpuscular Volume 90.7UM3 Mean Corpuscular Hemoglobin 29.1UUG Mean Corpuscular Hemoglobin Concent 32.1GM/DL RDW Standard Deviation 47.3FL Platelet Count 320T/MM3 Mean Platelet Volume 10.5UM3 Immature Granulocyte % (Auto) 0.0% Neutrophils (%) (Auto) 50.3% Lymphocytes (%) (Auto) 34.9% Monocytes (%) (Auto) 8.3% Eosinophils (%) (Auto) 5.5% Basophils (%) (Auto) 1.0% Absolute Immature Granulocyte (auto 0.00T/MM3 Absolute Neutrophils (auto) 2.5T/MM3 Absolute Lymphocytes (auto) 1.8T/MM3 Absolute Monocytes (auto) 0.4T/MM3 Absolute Eosinophils (auto) 0.3T/MM3 Absolute Basophils (auto) 0.1T/MM3 Turbidity < 20 < 20 Sodium Level 143MEQ/L 140MEQ/L Potassium Level 3.6MEQ/L 4.3MEQ/L Chloride Level 104MEQ/L 106MEQ/L Carbon Dioxide Level 27MEQ/L 29MEQ/L Anion Gap 12MEQ/L 5MEQ/L Blood Urea Nitrogen 21.0MG/DL 21.0MG/DL Creatinine 1.3MG/DL 1.1MG/DL Glomerular Filtration Rate Calc 40 48 BUN/Creatinine Ratio 16RATIO 19RATIO Glucose Level 102MG/DL 95MG/DL Calculated Osmolality 278MOSM/KG 272MOSM/KG Calcium Level 9.2MG/DL 9.0MG/DL Magnesium Level 1.6MG/DL 1.9MG/DL Total Bilirubin 1.00MG/DL Icterus Index < 2 < 2 Aspartate Amino Transf (AST/SGOT) 29U/L Alanine Aminotransferase (ALT/SGPT) 29U/L Alkaline Phosphatase 55U/L Total Protein 7.0G/DL Albumin 3.9G/DL Globulin 3.1G/DL Albumin/Globulin Ratio 1.3RATIO Thyroid Stimulating Hormone (TSH) 1.13MIU/L Chemistry Specimen Hemolysis < 15 < 15 Laboratory Tests Test 04/20/16 08:20 04/21/16 05:20 White Blood Count 5.1T/MM3 (4.5-11.0) Red Blood Count 4.53M/MM3 (4.00-5.20) Hemoglobin 13.2GM/DL (12-16) Hematocrit 41.1% (36-46) Mean Corpuscular Volume 90.7UM3 (80-100) Mean Corpuscular Hemoglobin 29.1UUG (26-34) Mean Corpuscular Hemoglobin Concent 32.1GM/DL (31-37) RDW Standard Deviation 47.3FL (36.9-50.2) Platelet Count 320T/MM3 (130-400) Mean Platelet Volume 10.5UM3 (9.4-12.4) Immature Granulocyte % (Auto) 0.0% (0.0-0.5) Neutrophils (%) (Auto) 50.3% (33-66) Lymphocytes (%) (Auto) 34.9% (23-45) Monocytes (%) (Auto) 8.3% (0-9.0) Eosinophils (%) (Auto) 5.5% (0-4) Basophils (%) (Auto) 1.0% (0-2) Absolute Immature Granulocyte (auto 0.00T/MM3 (0.00-0.03) Absolute Neutrophils (auto) 2.5T/MM3 (1.8-7.7) Absolute Lymphocytes (auto) 1.8T/MM3 (1-4.8) Absolute Monocytes (auto) 0.4T/MM3 (0-0.8) Absolute Eosinophils (auto) 0.3T/MM3 (0-0.5) Absolute Basophils (auto) 0.1T/MM3 (0-0.2) Turbidity < 20 (0-20) < 20 (0-20) Sodium Level 143MEQ/L (134-144) 140MEQ/L (134-144) Potassium Level 3.6MEQ/L (3.6-5) 4.3MEQ/L (3.6-5) Chloride Level 104MEQ/L (98-107) 106MEQ/L (98-107) Carbon Dioxide Level 27MEQ/L (22-30) 29MEQ/L (22-30) Anion Gap 12MEQ/L (5-15) 5MEQ/L (5-15) Blood Urea Nitrogen 21.0MG/DL (7-17) 21.0MG/DL (7-17) Creatinine 1.3MG/DL (0.7-1.2) 1.1MG/DL (0.7-1.2) Glomerular Filtration Rate Calc 40 48 BUN/Creatinine Ratio 16RATIO (6-26) 19RATIO (6-26) Glucose Level 102MG/DL (65-110) 95MG/DL (65-110) Calculated Osmolality 278MOSM/KG (261-280) 272MOSM/KG (261-280) Calcium Level 9.2MG/DL (8.4-10.2) 9.0MG/DL (8.4-10.2) Magnesium Level 1.6MG/DL (1.6-2.3) 1.9MG/DL (1.6-2.3) Total Bilirubin 1.00MG/DL (0.20-1.30) Icterus Index < 2 (0-7) < 2 (0-7) Aspartate Amino Transf (AST/SGOT) 29U/L (14-36) Alanine Aminotransferase (ALT/SGPT) 29U/L (9-52) Alkaline Phosphatase 55U/L (38-126) Total Protein 7.0G/DL (6.3-8.2) Albumin 3.9G/DL (3.5-5.0) Globulin 3.1G/DL (2.4-3.6) Albumin/Globulin Ratio 1.3RATIO (1.1-2.2) Thyroid Stimulating Hormone (TSH) 1.13MIU/L (0.47-4.68) Chemistry Specimen Hemolysis < 15 (0-25) < 15 (0-25) History of Present Illness Sri is a 75 year old female who is well known to Dr. Espinosa with a history of CAD, paroxysmal A Fib, HTN and HLD. She was last seen 03/30/16 and reported feeling an increase in palpitations while on Metoprolol. She is admitted today for observation on antiarrhythmic therapy on Sotalol 40mg po BID. Objective Vital Signs Vital signs Vital Signs 04/21/16 04/21/16 04/21/16 04/21/16 00:34 08:03 08:05 08:05 Temp 98.3 97.9 Pulse 63 60 60 60 Resp 12 18 18 B/P 122/58 140/60 Pulse Ox 96 97 O2 Delivery Room Air Room Air Telemetry Rhythm: Sinus Rhythm Height (Feet): 5 Height (Inches): 2.00 Weight (Kilograms): 91.300 General Alert, Orientated x 3, Cooperative ENMT (Brief) mucosa moist Neck (Brief) NOT FOUND: JVD, carotid bruits Respiratory (Brief) clear all [place], equal bilaterally, NOT FOUND: rales, wheezes Cardiovascular (Brief) regular rate, regular rhythm, NOT FOUND: click, gallop, murmur, pedal edema, rub Abdomen (Brief) BS normo active x4, soft, NOT FOUND: tender Integumentary (Brief) dry, pink, warm Psychiatric (Brief) alert, attentive, oriented Laboratory Laboratory Laboratory Tests 04/21/16 05:20 EKG sinus bradycardia, QT/QTc 467/456 Medications Current Medications Sotalol HCl (Betapace) 40 mg ACBID PO Last administered on 04/21/16 08:05; Start 04/20/16 at 09:45 Acetaminophen (Tylenol Extra Strength) 1,000 mg Q8H PRN PO PAIN; Start at 10:00 Atorvastatin Calcium (LIPITOR 10 mg) 10 mg HS PO Last administered on 21:36; Start 04/20/16 at 22:00 Calcium Carbonate (Calcium) 500 mg BID PO ; Start 04/20/16 at 21:00 Citalopram Hydrobromide (Celexa) 20 mg HS PO Last administered on 04/20/16 21: 34; Start 04/20/16 at 22:00 Cyclosporine (Restasis Eye Drops) 1 drop BID BOTH EYES Last administered on 10:26; Start 04/20/16 at 21:00 Pantoprazole Sodium (Protonix) 20 mg ACB PO Last administered on 04/21/16 06: 14; Start 04/21/16 at 06:30 Levothyroxine Sodium (Synthroid) 88 mcg DAILY PO Last administered on 06:14; Start 04/21/16 at 09:00 HCTZ/Lisinopril (Prinzide 10/ 12.5) 1 tab DAILY PO Last administered on 10:26; Start 04/21/16 at 09:00 Magnesium Oxide (Magox) 400 mg BID PO ; Start 04/20/16 at 21:00 Warfarin Sodium (COUMADIN 3 mg) 3 mg SuMoTuWeFrSa@1200 PO Last administered on 04/20/16 10:24; Start 04/20/16 at 12:00 Hospital Course She was admitted for observation on antiarrhythmic therapy on Sotalol. EKG and Telemetry show sinus bradycardia which is what her presenting rhythm was as well. She denies dizziness or syncope. Problems: (1) Paroxysmal atrial fibrillation Status: Chronic (2) Atherosclerotic heart disease of [place] coronary artery without angina pectoris Status: Chronic (3) Essential (primary) hypertension Status: Chronic (4) Mixed hyperlipidemia Status: Chronic Code Status Full Code Home Meds Active Scripts Sotalol HCl (Betapace) 80 Mg Tablet, 40 MG PO ACBID for 30 Days, #30 TAB 11 Refills Prov:JUSTIN DEVINE PROPERTY APPRAISER 04/21/16 Reported Medications Magnesium Oxide (Magnesium Oxide) 400 Mg Tablet, 400 MG PO BID 03/27/16 Mesalamine (Delzicol) 400 Mg Cap.drtab., 2 TAB PO BID 03/27/16 Warfarin Sodium (Warfarin Sodium) 3 Mg Tablet, 1.5 MG PO Th@1200 03/27/16 Warfarin Sodium (Warfarin Sodium) 3 Mg Tablet, 3 MG PO SuMoTuWeFrSa@1200 03/27/16 Lisinopril/Hydrochlorothiazide (Lisinopril-Hctz 10-12.5 mg Tab) 1 Each Tablet, 1 TAB PO DAILY 03/27/16 Levothyroxine Sodium (Synthroid) 88 Mcg Tablet, 88 MCG PO DAILY 03/27/16 Esomeprazole Mag Trihydrate (Nexium) 20 Mg Capsule, 20 MG PO DAILY 03/27/16 Cyclosporine (Restasis) 1 Each Droperette, 1 DROP BOTH EYES BID 03/27/16 Calcium Carbonate (Calcium) 500 Mg Tablet, 500 MG PO BID 03/27/16 Citalopram Hydrobromide (Citalopram HBr) 20 Mg Tablet, 20 MG PO HS 01/14/14 Acetaminophen (Tylenol Extra Strength) 500 Mg Tablet, 1000 MG PO Q8H Y for PAIN 04/15/13 Atorvastatin Calcium (Atorvastatin Calcium) 10 Mg Tablet, 10 MG PO HS 07/30/12 Multivitamins (Multivitamin) 1 Tab Tablet, 1 TAB PO DAILY 12/05/11 Discontinued Reported Medications Metoprolol Tartrate (Metoprolol Tartrate) 100 Mg Tablet, 100 MG PO HS 03/27/16 Discharge Disposition Discharged to home in good and stable condition in the care of herself with RX for Sotalol 40mg BID transmitted to [facility]'s pharmacy. JUSTIN DEVINE APRN Apr 21, 2016 11:42
[2016-04-21] MEDS ORDERED: WARFARIN 3 MG TABLET PO SCH (12:00)
--- NOTE | 2016-04-21 12:22 | NUR ---
DISCHARGE INSTRUCTIONS PATIENT IS ALERT AND ORIENTED X3. PATIENT VITALS ARE STABLE AND PATIENT IS ON ROOM AIR. PATIENT DENIES CP, NAUSEA, AND SOA. DISCHARGE INSTRUCTIONS INCLUDE: ACTIVITY, DI FOR SOTALOL, FOLLOW UP APPOINTMENT, REASONS TO CALL DOCTOR, NEW MEDICATIONS, CONTINUED MEDICATIONS. PERSONAL BELONGINGS RETURNED AND ID BAND REMOVED. SCRIPT ELECTRONICALLY SENT TO [facility]. IV DISCONTINUED.
--- NOTE | 2016-04-21 12:28 | NUR ---
DISCHARGE PATIENT AMBULATED TO FRONT ENTRANCE WITH NURSING STAFF AT THIS TIME. PATIENT TRANSPORTED HOME FOR SELF CARE BY .
--- NOTE | 2016-04-26 13:57 | NUR ---
CM CM PLACED DISCHARGE FOLLOW UP CALL TODAY, PATIENT REPORTS TODAY SHE HAS HAD MORE FREQUENT RAPID HEART BEATS. PATIENT REPORTS THAT SHE HAD RAPID BEATS BUT IT IS MORE FREQUENT TODAY. THIS CM ASKED PATIENT TO CALL DR DONNELLY AND NOTIFY HIM OF RAPID HEART BEATS SHE AGREES TO CALL.
== END 2016-04-21 12:28 | disposition home or self-care (01) ==
LOC: UNDOADMOB 04-20 07:46 → SRG 04-20 07:46
PROVIDERS: ADMIT Internal Medicine Cardiovascular Disease; ATTEND Internal Medicine Cardiovascular Disease
DX: I48.0 Paroxysmal atrial fibrillation (principal); I25.10 Atherosclerotic heart disease of native coronary artery without angina pectoris; I10 Essential (primary) hypertension; E78.2 Mixed hyperlipidemia; E03.9 Hypothyroidism, unspecified; K21.9 Gastro-esophageal reflux disease without esophagitis; Z79.01 Long term (current) use of anticoagulants; Z79.899 Other long term (current) drug therapy
CPT/HCPCS: 36415; 80048; 80053; 83735; 84439; 84443; 85025; 93005; A9270; G0378; G0379; 99218